=== PATIENT | female | born 1985 | race Caucasian/White ===

== ENCOUNTER → 2019-11-01 08:17 | Outpatient (BNVA) | payer BC, SELFPAY | PROVIDERS: Family Provider Family Medicine; Visit Provider Nurse Practitioner Psychiatric/Mental Health | DX: F33.1 Major depressive disorder, recurrent, moderate (principal); F41.1 Generalized anxiety disorder; F17.210 Nicotine dependence, cigarettes, uncomplicated | CPT/HCPCS: 99213 ==

== ENCOUNTER → 2020-12-22 14:28 | Outpatient (BNVA) | payer BC, SELFPAY | PROVIDERS: Family Provider Family Medicine; Visit Provider Obstetrics & Gynecology | DX: Z12.4 Encounter for screening for malignant neoplasm of cervix (principal); N92.6 Irregular menstruation, unspecified | CPT/HCPCS: 83525; 84443; 88175 ==

== ENCOUNTER → 2021-03-06 09:26 | Outpatient (BNVA) | payer BC, SELFPAY | PROVIDERS: Family Provider Family Medicine; Visit Provider Nurse Practitioner Women's Health | DX: N92.6 Irregular menstruation, unspecified (principal) | CPT/HCPCS: 81025 ==

== ENCOUNTER → 2021-04-13 13:00 | Outpatient (BNVA) | payer BC, SELFPAY | PROVIDERS: Family Provider Family Medicine; Visit Provider Obstetrics & Gynecology | DX: Z34.80 Encounter for supervision of other normal pregnancy, unspecified trimester (principal) | CPT/HCPCS: 80307; 84315; 85025; 86592; 86762; 86803; 86850; 86900; 87086; 87340; 87491; 87591; 87661 ==

== ENCOUNTER → 2021-04-27 13:07 | Outpatient (BNVA) | payer BC, SELFPAY | PROVIDERS: Family Provider Family Medicine; Visit Provider Obstetrics & Gynecology | DX: Z34.90 Encounter for supervision of normal pregnancy, unspecified, unspecified trimester (principal) | CPT/HCPCS: 84315; 87086 ==

== ENCOUNTER → 2021-05-02 16:30 | Outpatient (BNVA) | payer BC, SELFPAY | PROVIDERS: Family Provider Family Medicine; Visit Provider Obstetrics & Gynecology | DX: R39.9 Unspecified symptoms and signs involving the genitourinary system (principal) | CPT/HCPCS: 81000; 87086 ==

== ENCOUNTER → 2021-05-18 08:01 | Outpatient (BNVA) | payer BC, SELFPAY | PROVIDERS: Family Provider Family Medicine; Visit Provider Obstetrics & Gynecology | DX: Z34.90 Encounter for supervision of normal pregnancy, unspecified, unspecified trimester (principal) | CPT/HCPCS: 84315; 87086 ==

== ENCOUNTER → 2021-06-22 08:45 | Outpatient (BNVA) | payer BC, SELFPAY | PROVIDERS: Family Provider Family Medicine; Visit Provider Obstetrics & Gynecology | DX: Z34.90 Encounter for supervision of normal pregnancy, unspecified, unspecified trimester (principal) | CPT/HCPCS: 84315; 87086 ==

== ENCOUNTER → 2021-07-13 09:48 | Outpatient (BNVA) | payer BC, SELFPAY | PROVIDERS: Family Provider Family Medicine; Visit Provider Obstetrics & Gynecology | DX: Z34.80 Encounter for supervision of other normal pregnancy, unspecified trimester (principal) | CPT/HCPCS: 84315; 87077; 87086; 87184 ==

== ENCOUNTER → 2021-08-15 10:20 | Outpatient (BNVA) | payer BC, SELFPAY | PROVIDERS: Family Provider Family Medicine; Visit Provider Obstetrics & Gynecology | DX: Z34.80 Encounter for supervision of other normal pregnancy, unspecified trimester (principal) | CPT/HCPCS: 82950; 84315; 84443; 85025; 87086 ==

== ENCOUNTER → 2021-08-24 08:41 | Outpatient (BNVA) | payer BC, SELFPAY | PROVIDERS: Family Provider Family Medicine; Visit Provider Obstetrics & Gynecology | DX: Z34.80 Encounter for supervision of other normal pregnancy, unspecified trimester (principal) | CPT/HCPCS: 84315; 87086 ==

== ENCOUNTER → 2021-09-07 10:07 | Outpatient (BNVA) | payer BC, SELFPAY | PROVIDERS: Family Provider Family Medicine; Visit Provider Obstetrics & Gynecology | DX: Z34.80 Encounter for supervision of other normal pregnancy, unspecified trimester (principal) | CPT/HCPCS: 84315; 87086 ==

== ENCOUNTER → 2021-09-21 10:20 | Outpatient (BNVA) | payer BC, SELFPAY | PROVIDERS: Family Provider Family Medicine; Visit Provider Obstetrics & Gynecology | DX: Z34.90 Encounter for supervision of normal pregnancy, unspecified, unspecified trimester (principal) | CPT/HCPCS: 84315; 87086 ==

== ENCOUNTER → 2021-10-05 13:33 | Outpatient (BNVA) | payer BC, SELFPAY | PROVIDERS: Family Provider Family Medicine; Visit Provider Obstetrics & Gynecology | DX: Z34.80 Encounter for supervision of other normal pregnancy, unspecified trimester (principal) | CPT/HCPCS: 84315; 87081; 87086 ==

== ENCOUNTER → 2021-10-12 08:24 | Outpatient (BNVA) | payer BC, SELFPAY | PROVIDERS: Family Provider Family Medicine; Visit Provider Obstetrics & Gynecology | DX: Z34.80 Encounter for supervision of other normal pregnancy, unspecified trimester (principal) | CPT/HCPCS: 84315; 87086 ==

== ENCOUNTER 2021-10-15 05:15 | Inpatient (IN) | payer BC, SELFPAY ==
[2021-10-15] VITALS (52 sets, daily range): BP systolic 112–149; BP diastolic 51–87; PULSE 68–102; RESP 16; TEMP 35.8–37.2; O2SAT 97–98; BMI 27.9
[2021-10-15 02:00] LABS: Actim Prom Positive
[2021-10-15] MEDS: dextrose 5%-lactated ringers 1,000 ML 125 ML IV (02:15)
[2021-10-15 02:37] LABS: Basophils % 0.3 %; Eosinophils % 0.3 %; Hematocrit 35.5 % (37.0-47.0); Hemoglobin 12.4 g/dL (11.5-15.3); Lymphocytes # 2.1 10^3/uL (0.8-4.8); Lymphocytes % 19.2 %; Mean Corpuscular HGB Conc 34.9 g/dL (30.0-36.0); Mean Corpuscular Hemoglobin 33.2 pg (28.0-34.0); Mean Corpuscular Volume 94.9 fl (81-99); Mean Platelet Volume 10.4 fL (7.4-10.4); Monocytes # 0.6 10^3/uL (0.2-0.9); Monocytes % 5.3 %; Neutrophils # 8.02 10^3/uL (1.8-7.7); Neutrophils % 74.1 %; Nucleated Red Blood Cells % 0 %; Platelet Count 228 10^3/cmm (130-400); Red Blood Count 3.74 10^6/uL (4.1-5.3); Red Cell Distribution Width 13.3 % (12.1-15.1); White Blood Count 10.8 10^3/uL (4.0-10.0)
[2021-10-15] MEDS: ampicillin 2,000 MG in sodium chloride 0.9% (plus) 50 ML 100 MG IV (02:59)
[2021-10-15] MEDS: ampicillin 1,000 MG in sodium chloride 0.9% (plus) 50 ML 100 MG IV ×2 (07:07→12:25)
--- NOTE | 2021-10-15 08:21 | W.PM.OPSUD ---
Surgery/Procedure H&P Update DATE OF PROCEDURE: October 15, 2021 DATE H&P PERFORMED: 10/12/21 H&P UPDATE INFORMATION: I have reviewed H&P completed within last 30 days and Changes to prior documentation as noted here (cervix 7 cm dialtion) PRIMARY INDICATION FOR PROCEDURE: Ms. Owens is a 36 year old established patient with LMP of 01/28/2021, NEERU 11/04/2021 based on LMP and consistent with 8 week ultrasound, placing her at 37-1/7 weeks came to L&D in active labor.
[2021-10-15] MEDS: oxytocin 30 UNIT/500 ML BAG IV (08:42)
[2021-10-15] MEDS: alum-mag-hydroxide-sime 30 mL UDC PO (12:32)
--- NOTE | 2021-10-15 13:33 | PM.DELIVERY ---
Delivery Note: Date of delivery: October 15, 2021 Pre-delivery diagnoses: Term Post-delivery diagnoses: Term delivered Procedure: Spontaneous vaginal delivery Delivering Physician: Dariel Stephens MD Estimated blood loss (mL): 300 Findings: Female infant, Apgars 8/9, weight 2600 g Delivery: The patient was noted to be complete and pushing, so was placed in the dorsal lithotomy position, prepped and draped in the usual sterile fashion for a vaginal delivery. Pt. Noted to have epidural anesthesia. At 1320 the patient delivered a viable term female infant weighing 2600g with scores of 8 and 9 at one and five minutes, respectively. The vertex was delivered spontaneously over intact perineum. The patient was asked to push and the head delivered spontaneously in the CARLOS ALBERTO position, over an intact perineum. A nuchal cord was checked and 1 noted, and relieved around head as necessary. The anterior shoulder delivered easily and the posterior shoulder followed. The remainder of the infant was easily delivered and the oropharynx and nasopharynx was bulb suctioned. The was noted to have spontaneous cry and spontaneous movement of all four extremities. The cord was clamped x 2 and cut and noted to have 2 arteries and one vein. The infant was passed to the mother's abdomen where nursing personnel were in attendance. The placenta delivered intact spontaneously and the uterus was explored. 20 units of Pitocin was placed in the IV bag to firm the uterus. Examination of the cervix and vaginal vault did not reveal any lacerations. A vaginal pack was then placed. Examination of the perineum showed no laceration. The vaginal pack was then removed. The patient tolerated this procedure well, and recovered in L&D with her in their LDR room. All sponge and needle counts were correct. 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
[2021-10-15] MEDS: benzocaine-menthol 78 gm Canister 1 SPRAY TOPICAL (15:39)
[2021-10-15] MEDS: lanolin oint 7 gm 1 APPLIC TOPICAL (15:39)
[2021-10-15] MEDS: ibuprofen 800 mg tablet PO ×2 (15:39→21:30)
[2021-10-16] MEDS: HYDROcodone-acetaminophen 5-325 mg Tablet PO (03:41)
[2021-10-16 03:42] VITALS: BP 122/64; PULSE 74; TEMP 36.6; O2SAT 98
[2021-10-16 04:16] LABS: Hematocrit 30.5 % (37.0-47.0); Hemoglobin 10.4 g/dL (11.5-15.3); Mean Corpuscular HGB Conc 34.1 g/dL (30.0-36.0); Mean Corpuscular Hemoglobin 33.1 pg (28.0-34.0); Mean Corpuscular Volume 97.1 fl (81-99); Mean Platelet Volume 10.5 fL (7.4-10.4); Platelet Count 196 10^3/cmm (130-400); Red Blood Count 3.14 10^6/uL (4.1-5.3); Red Cell Distribution Width 13.6 % (12.1-15.1); White Blood Count 15.2 10^3/uL (4.0-10.0)
[2021-10-16 09:10] VITALS: BP 115/58; PULSE 101; RESP 16; TEMP 36.7
[2021-10-16] MEDS: ibuprofen 800 mg tablet PO ×2 (09:25→23:00)
[2021-10-16] MEDS: prenatal vitamin Capsule 1 CAP PO (09:25)
[2021-10-16] MEDS: docusate sodium 100 mg Capsule PO (09:25)
[2021-10-16 14:50] VITALS: BP 128/72; PULSE 76; RESP 16; TEMP 36.5
--- NOTE | 2021-10-16 16:52 | P.DS_ITS ---
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 Owens is a 36 year old established patient with LMP of 01/28/2021, NEERU 11/04/2021 based on LMP and consistent with 8 week ultrasound, placing her at 37 1/7 weeks on admission. Hospital Course Hospital Course Mrs. Owens came to labor and delivery with chief complaint of contractions upon examination she was noted to be in active labor. She was admitted and she progressed to have a spontaneous vaginal delivery of viable term female infant weighing 2600g with scores of 8 and 9 without complications. observation was uneventful. She is afebrile and hemodynamically stable day 1. Tolerating diet well. Ambulating without difficulty. Information Peripartum Data: Delivery Method: Vaginal Physical Exam Narrative: GA; alert and oriented x 3 HEENT: normal Breasts: engorged Nipples - skin intact Lungs; clear to auscultation Heart: regular rhythm, no murmurs. Abd: Appropriately tender. BS+. Uterine fundus below umbilicus. No Fundal Tenderness. Perineum: normal lochia. Extremities: no edema, no cyanosis, no tenderness. History History History 3 Term 2 Miscarriages/Ectopic 0 0 Living Children 2 Discharge Data Studies Completed and Pending Laboratory Results WBC 15.2 10^3/uL (4.0-10.0) H 10/16/21 03:55 RBC 3.14 10^6/uL (4.1-5.3) L 10/16/21 03:55 Hgb 10.4 g/dL (11.5-15.3) L 10/16/21 03:55 Hct 30.5 % (37.0-47.0) L 10/16/21 03:55 MCV 97.1 fl (81-99) 10/16/21 03:55 MCH 33.1 pg (28.0-34.0) 10/16/21 03:55 MCHC 34.1 g/dL (30.0-36.0) 10/16/21 03:55 RDW 13.6 % (12.1-15.1) 10/16/21 03:55 Plt Count 196 10^3/cmm (130-400) 10/16/21 03:55 MPV 10.5 fL (7.4-10.4) H 10/16/21 03:55 Neut % (Auto) 74.1 % 10/15/21 02:18 Lymph % (Auto) 19.2 % 10/15/21 02:18 [place] % (Auto) 5.3 % 10/15/21 02:18 Eos % (Auto) 0.3 % 10/15/21 02:18 Baso % (Auto) 0.3 % 10/15/21 02:18 Neut # (Auto) 8.02 10^3/uL (1.8-7.7) H 10/15/21 02:18 Lymph # (Auto) 2.1 10^3/uL (0.8-4.8) 10/15/21 02:18 [place]ble # (Auto) 0.6 10^3/uL (0.2-0.9) 10/15/21 02:18 Eos # (Auto) 0.0 10^3/uL (0.0-0.8) 10/15/21 02:18 Baso # (Auto) 0.0 10^3/uL (0.0-0.1) 10/15/21 02:18 Nucleated RBC % (auto) 0 % 10/15/21 02:18 Nucleated RBCs # 0.0 /100WBC 10/15/21 02:18 Insulin-like GF I Positive 10/15/21 01:24 Vitals Last Vital Signs Temp 97.7 F 10/16/21 14:50 Pulse 76 10/16/21 14:50 Resp 16 10/16/21 14:50 BP 128/72 10/16/21 14:50 Pulse Ox 98 10/16/21 03:42 Discharge Plan Discharge Patient Disposition: Home Condition: Stable Prescriptions: New acetaminophen 325 mg capsule 325 mg PO Q4H PRN (Reason: fever or pain) Qty: 60 0RF ibuprofen 800 mg tablet 800 mg PO TID PRN (Reason: pain) Qty: 60 0RF Colace 100 mg capsule 100 mg PO BID Qty: 60 0RF Iron (ferrous sulfate) 325 mg (65 mg iron) tablet 325 mg PO BID Qty: 60 0RF Continued Zyrtec 10 mg capsule 10 mg PO DAILY 0RF prenat.vits,anish,tay-[id number]-[id number] Tablet 1 tab PO DAILY 0RF bupropion HCl [Wellbutrin XL] 150 mg tablet extended release 24 hr 150 mg PO QAM Qty: 90 1RF Rx Instructions: Take one tablet every morning Discharge Orders: Discharge Order (Routine); Ordered 10/16/21 Ordered By: Dariel Stephens Referrals: Dariel Stephens MD [Physician] - 6 Weeks Discharge Diet: Usual diet Discharge Activity: Limit activity as instructed Patient Instructions: Depression (DC), Bleeding (DC), Preeclampsia and Eclampsia After Delivery (GEN), OB Discharge Report, OB Food/Drug Interaction Guide, OB Care at Home, Opioid Safety, OB Home Care, OB Proud Parent Packet, OB Vaginal Deliveries - [facility], Abnormal Bleeding Activity Restrictions/Additional Instructions: 1. Please call [facility] on next working day to make your appointment in 6 weeks. 2. Please stay home until you come back to the clinic on first post-operative check up. 3. Please follow instructions on your medications CAREFULLY. 4. If you have abdominal incision, do not cover it unless dressing is necessary because of drainage. OK to shower, but avoid bath. Leave steri-strips until they fall off. If they are still on one week after surgery, you may remove them. 5. If you had vaginal surgery or vaginal repair, Dr. Stephens may instruct you to take SITZ bath. 6. Yellow, blood tinged odorous vaginal discharge is usually normal after hysterectomy or vaginal surgeries. 7. No sexual intercourse, tampons, or douches until you are completely released from the post-operative care. 8. Avoid constipation by eating right and maybe using some Metamucil or Milk of Magnesia. 9. All prescription refills are given during the working hours. Please do no wait till it runs out. Call the clinic at [phone] before your medication runs out. The clinic will get in touch with your doctor to prescribe medications if necessary. 10. Please remain within 40 mile radius from our hospital because emergencies do happen now and then during the post-operative period. 11. If you have stairs at home, take one step at a time slowly and minimize the number of trips. It helps to stay in one floor for the next few days. No lifting except what you can lift by one hand until you are released from the post-operative care. 12. Driving is discouraged until you are well healed. It may be 3-4 weeks before you feel strong enough to drive. You should be able to turn and look through the rear window without pain and you should be able to push the brake pedal very hard without pain before you drive. No fast rules, but SAFETY should be your primary concern. DO NOT drive if you are on sedating medications such as narcotics. 13. Call the clinic (during working hours) to make urgent appointment or go to the Emergency room, if any of the following occurs: i. Vaginal bleeding becomes heavy, more than a period. ii. Incision becomes red and sore, or drains pus. iii. Your temperature is over 100.4 or you have chill. iv. IV site becomes red and swollen (a little ``knot?? is usually OK) v. Persistent nausea and vomiting vi. Persistent constipation or diarrhea vii. Rash or allergic reaction to medications. 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
[2021-10-16] MEDS: acetaminophen 325 mg Tablet 650 MG PO (18:25)
[2021-10-16 22:50] VITALS: BP 123/63; PULSE 94; RESP 16; TEMP 36.8; O2SAT 97
== END 2021-10-16 23:00 | disposition home or self-care (01) | DRG 807 ==
LOC: OPOB 05:16 → OBGYN 05:16
PROVIDERS: Admitting Provider Obstetrics & Gynecology; Family Provider Family Medicine; Visit Provider Obstetrics & Gynecology
DX: O99.344 Other mental disorders complicating childbirth (principal); Z37.0 Single live birth; O69.9XX0 Labor and delivery complicated by cord complication, unspecified, not applicable or unspecified; Z3A.37 37 weeks gestation of pregnancy; F41.1 Generalized anxiety disorder; F32.9 Major depressive disorder, single episode, unspecified
CPT/HCPCS: 36415; 59409; 84112; 85025; 85027; J0290